=== PATIENT | female | born 1990 | race Two or more races ===

== ENCOUNTER → 2020-02-11 | Outpatient (CLI) | payer OTHER | END | disposition home or self-care (01) | LOC: PRENATAL 13:51 | DX: O35.3XX0 Maternal care for (suspected) damage to fetus from viral disease in mother, not applicable or unspecified (principal); O28.1 Abnormal biochemical finding on antenatal screening of mother; Z36.89 Encounter for other specified antenatal screening ==

== ENCOUNTER 2020-06-17 00:17 | Inpatient (IN) | payer OTHER ==
[~2020-06-17] VITALS: Ht 157.5 cm; Wt 68.9 kg
[2020-06-17] MEDS ORDERED: PRENATAL TABLE1 EAC1 PO (01:14)
[2020-06-20] MEDS ORDERED: CODE1TAB37 PO (13:22)
[2020-06-20] MEDS ORDERED: IBUPROFEN600 MG PO (13:22)
== END 2020-06-20 16:30 | disposition home or self-care (01) | DRG 788 ==
LOC: OB/GYN 00:17 → LDR 00:17 → OB/GYN 15:19
PROVIDERS: ADMIT Obstetrics & Gynecology; ATTEND Obstetrics & Gynecology
PROC: 3E033VJ Introduction of Other Hormone into Peripheral Vein, Percutaneous Approach (ICD-10-PCS; 2020-06-17)
PROC: 4A1HXCZ Monitoring of Products of Conception, Cardiac Rate, External Approach (ICD-10-PCS; 2020-06-17)
PROC: 10D00Z1 Extraction of Products of Conception, Low, Open Approach (ICD-10-PCS; principal; 2020-06-17 13:00)
DX: O64.8XX0 Obstructed labor due to other malposition and malpresentation, not applicable or unspecified (principal); Z3A.40 40 weeks gestation of pregnancy; Z37.0 Single live birth; Z20.828 Contact with and (suspected) exposure to other viral communicable diseases